=== PATIENT | female | born 1950 | race Two or more races ===

== ENCOUNTER → 2024-04-28 | Outpatient (CLI) | payer MEDICARE, MEDICAID, SELFPAY ==
--- NOTE | 2024-04-28 08:30 | XR_ITS ---
Examination: Breast ultrasound, unilateral, right complete Date and time of exam: April 28, 2024 0757 hours INDICATIONS: Mammogram April 08, 2024 4 mm focal asymmetry outer right breast Technique: Real-time nixon scale ultrasonographic imaging performed right breast including all 4 quadrants as well as nipple retroareolar and axillary region. Findings: 1:00 cyst 6 x 6 mm 1:00 cyst 5 x 4 mm No solid nodules IMPRESSION: BI-RADS Category 2: Benign findings
--- NOTE | 2024-04-28 09:15 | XR_ITS ---
Examination: Diagnostic digital mammography, unilateral, right Computer aided detection 3-D breast Tomosynthesis, unilateral Date and time of exam: April 28, 2024 0810 hours INDICATIONS: Mammogram April 08, 2024 4 mm focal asymmetry outer right breast CC view, 4.3 cm from the nipple Technique: Nonmagnified MLO, CC views of the right breast have been obtained, reconstructed from 3-D Tomosynthesis images. R2 computer aided detection program utilized for evaluation of suspicious masses and/or abnormal calcifications. 3-D Tomosynthesis images obtained. Findings: Scattered areas of fibroglandular density. Right breast sonogram today demonstrates benign cysts right breast Current spot compression films do not confirm suspicious mass Impression: BI-RADS category 2: Benign findings Return to yearly follow-up mammography
== END | disposition home or self-care (01) ==
PROVIDERS: PCP Physician Assistant; Referring Provider Physician Assistant; Visit Provider Physician Assistant
DX: R92.321 Mammographic fibroglandular density, right breast (principal); N60.01 Solitary cyst of right breast
CPT/HCPCS: 76641; 77061; 77065; G0279

== ENCOUNTER → 2024-08-24 | Outpatient (CLI) | payer MEDICARE, MEDICAID, SELFPAY ==
--- NOTE | 2024-08-24 12:40 | XR_ITS ---
Examination: Bone densitometry Date and time of exam:2024 1256 hours INDICATIONS: BI-RADS age 47, personal history osteopenia Technique: Lumbar spine and hip total bone mineralization values of an calculated. Peak reference and age match control results have been displayed. Findings: Lumbar spine total bone mineralization is1.048 gm/cm2. This is 0.0 standard deviations at peak reference. This is 2.3 standard deviations above age-matched controls. Hip total bone mineralization is 0.886 gm/cm2 This is 46 standard deviations below peak reference. This is 1.1 standard deviations above age-matched controls Impression: There is normal mineralization based on lumbar spine measurements. There is osteopenia based on hip measurements Lumbar mineralization is increase 12.9% compared with May 19, 2018 Hip mineralization is decreased 5.2% compared with May 19, 2019
== END | disposition home or self-care (01) ==
LOC: CDIM 12:34
PROVIDERS: PCP Physician Assistant; Referring Provider Physician Assistant; Visit Provider Physician Assistant
DX: M85.89 Other specified disorders of bone density and structure, multiple sites (principal)
CPT/HCPCS: 77080

== ENCOUNTER 2024-09-07 10:25 | Outpatient (AMB) | payer MEDICARE, MEDICAID, SELFPAY ==
[2024-09-07 10:45] VITALS: BP 146/80; PULSE 75; RESP 17; TEMP 36.1; O2SAT 93; BMI 43.9
--- NOTE | 2024-09-07 10:45 | ORTHONT_ITS ---
Vital signs 09/07/24 10:45 Height 1.52 m Height Method Stated Weight 102.058 kg Weight Measurement Method Standing Scale BMI 43.9 BP 146/80 H Blood Pressure Source Automatic Cuff Blood Pressure Location Left Upper Arm Position Sitting Respiration 17 Pulse 75 Pulse Source Monitor Temp 97.0 F Temp Source Temporal Artery Scan Pulse Oximetry (%) 93 L Oxygen Delivery Method Room Air Med/Allergies Allergies & Medications Allergies No Known Allergies Allergy (Verified 09/07/24 10:46) Medication Reconciliation tramadol 50 mg tablet (Ultram) 50 mg PO BID #0 tabs 04/25/14 [History Confirmed 09/07/24] acetaminophen 500 mg tablet (Tylenol Extra Strength) 500 mg PO Q6H PRN 01/09/24 [History Confirmed 09/07/24] benazepril 40 mg tablet 40 mg PO BID 01/09/24 [History Confirmed 09/07/24] clonazepam 1 mg tablet 1 mg PO QDAY 01/09/24 [History Confirmed 09/07/24] diclofenac sodium 75 mg tablet,delayed release 75 mg PO BID 01/09/24 [History Confirmed 09/07/24] sertraline 50 mg tablet 50 mg PO QDAY 01/09/24 [History Confirmed 09/07/24] vitamin B complex (B-Complex tablet) 1 tab PO QDAY 09/07/24 [History Confirmed 09/07/24] Exam Exam Patient is in no acute distress and is cooperative with the examination today. Breathing is nonlabored. Patient has a normal mood and affect. Bilateral extremities were evaluated and demonstrates sensation intact to light touch. Palpable pedal pulses are present. No significant edema is present. Bilateral hips were examined. The patient has no pain with log roll of the hips. Internal rotation to 30 degrees and external rotation to 30 degrees is painless. Negative FADIR. Right knee was examined today. Right knee incision is clean, dry, and intact Left knee was examined today. Left knee demonstrates range of motion 0 to 100 degrees. She is tender palpation medially Left knee x-rays Demonstrate significant joint space obliteration medially. There is complete obliteration and varus deformity with significant osteophytes Assessment and Plan Problem List (1) Arthritis of left knee: Status: Acute Plan: Patient is a 73-year-old female with significant left knee arthritis and varus deformity. She has tried diclofenac and multiple injections. The pain is affecting her quality of life. We discussed weight loss in great detail And she has made a significant attempt. Given her failure of conservative treatment, we discussed total knee replacement as a reasonable option. She also tried formal physical therapy and home exercises The nature and purpose of the total knee replacement, alternative method(s) of treatment, the material risks involved, and the possibility of complications were fully explained to the patient. The patient does NOT have any of the following contraindications to TKA: - Active infection of the knee joint, OR - Active systemic bacteremia, OR - Active skin infection or open wound at surgical site, OR - Neuropathic arthritis, OR - Severe, rapidly progressive neurological disease, OR - Severe medical condition that makes risks of surgery outweigh the potential benefit The patient was told the most common risks and complications associated with a total knee replacement include, but are not limited to: blood clots in the leg, fatal pulmonary embolism, dislocation of the prosthesis, intraoperative and postoperative fractures of the femur or tibia, infection, failure of the prosthesis or grafting materials, complications from anesthesia, reactions to blood transfusions, postoperative leg length inequality, instability of the knee replacement, nerve damage or injury, vascular injury, delayed wound healing, infection, other injury or even . In addition, there are risks associated with anesthesia given during this operation. Also, the patient was told that after undergoing a total knee replacement there may still be persistent pain or disability. The patient was informed that the success of this operation in part depends upon the mechanical devices which are going to be implanted and that these devices can fail or malfunction, and may need to be repaired or replaced and there are no guarantees as to the longevity of this device or its parts and that it or its parts could fail prematurely. The patient was also notified that during the course of surgery, there may be a need to use bone graft from donors, and that any bone graft used will be carefully screened for communicable diseases, including AIDS, hepatitis, Niraj-Creutzfeldt, or other diseases, but despite the screening procedures, there is a small chance that they could contract one of these diseases. Finally, the patient was asked to follow completely and fully with all advice and recommended treatments, and that recovery and ultimate outcome are affected by their compliance with recommended treatment. We discussed the risks, benefits and treatment alternatives, and the patient is interested in proceeding with surgery. We will try to set this up as expeditiously as possible. Advanced Care Planning Discussion Advance care planning discussed with:: patient Office Procedures GNS Level of Care Nursing/Assessment Patient Status: Established Patient Nursing Assessment/Reassesment: Medication Reconciliation and Update PMH in EMR Coordination of Care: Complex Care and Chronic Disease 1-5, Consent,records obtained, informed consent, Education Simp Pt/Fam, Results/Orders obtained and Staff clarify orders Special Needs: Language special needs (KYRGYZ ) Established Patient Charge Established Patient Point Assignment: 75 Established Patient Point Charge: EP Level 3 (80-115) MA Intake Visit Data Collection New Patient or Established: Established Patient (seen at [facility] within 3 years) Reason for Visit:: LEFT KNEE MENISCUS Seen by Clinical Staff ONLY (RN/MA): No 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: 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 PCP or OBGYN visit in last 3 months: Yes Hx Now: No Do You Feel Safe at Home: Yes Authorities Contacted: N/A Questionairres Past Medical History Past Medical History Have you ever been diagnosed with any of the following: Cardiology Problems Hypertension: Yes Respiratory Problems Chronic Obstructive Pulmonary Disease (COPD): No Asthma: No Emphysema: No Pneumonia: Yes Tuberculosis: No Smoking: No Smoking Cessation Counseling: No Smoking Exposure: No Tobacco Use: No Clubbing: No Genital/Urinary Problems Renal Disease: No Musculoskeletal Problems Arthritis: Yes Endocrine Problems Diabetes Mellitus Type 2: No Blood Problems Sickle Cell Disease: No Psychologic Problems Depression: Yes Anxiety: Yes Other Problems Cancer: No Subjective Visit Visit for: follow up visit and knee (LT KNEE ) Immunization / Flu Flu Vaccine in the Last 12 Months: Yes Flu Vaccine Exclusion Criteria: Already Received History of Present Illness Chief complaint: left knee pain Patient is a pleasant 74-year-old female with severe left knee pain. She had a right total knee replacement quite a while ago. The left knee injections are no longer working. She also takes diclofenac orally and has tried home exercises. She has been attempting his weight has tried weight loss medications in the past. She reports the pain is affecting her quality life and happiness at this point. Personal History Red flag PMH: none Pain Pain level (0-10): 10 Pain location: anterior and posterior Pain quality: sharp Pain timing: night and increases with activity Associated signs & symptoms: weakness and stiffness Ambulatory data Ambulatory device: none Walking distance (minutes): 5 Treatments Number of previous injections: 1 Improvement with previous injections: No Number of Physical Therapy sessions: 1 Improvement with PT: No Improvement with NSAIDS: n/a Review of Systems Review of Systems: All systems negative unless otherwise noted in HPI.
== END 2024-09-07 10:59 | disposition home or self-care (01) ==
LOC: HODSRG 10:25
PROVIDERS: PCP Physician Assistant; Referring Provider Physician Assistant; Supervising Provider Orthopaedic Surgery Adult Reconstructive Orthopaedic Surgery; Visit Provider Orthopaedic Surgery Adult Reconstructive Orthopaedic Surgery
DX: M17.12 Unilateral primary osteoarthritis, left knee (principal); M21.162 Varus deformity, not elsewhere classified, left knee; I10 Essential (primary) hypertension
CPT/HCPCS: 99213; G0463

== ENCOUNTER → 2024-09-13 | Outpatient (CLI) | payer MEDICARE, MEDICAID, SELFPAY ==
--- NOTE | 2024-09-13 15:53 | XR_ITS ---
Examination: PA lateral chest 2 views Technique: Upright PA lateral chest 2 views Exam date and time: September 13, 2024 1601 hrs. Indications: Preop knee surgery. Findings: Normal heart size Lungs are clear Moderate osteopenia Impression: No active disease
[2024-09-13 17:42] LABS: Basophils # (Auto) 0.1 Thou/mm3 (0.0-0.2); Basophils % (Auto) 1 % (0-2.5); Eosinophils # (Auto) 0.1 Thou/mm3 (0.0-0.5); Eosinophils % (Auto) 2 % (0-10); Hemoglobin 12.3 g/dL (12.0-16.0); Immature Granulocytes % (Auto) 0 % (0-0); Immature Granulocytes Auto 0.02 Thou/mm3 (0.00-0.00); Lymphocytes # (Auto) 2.4 Thou/mm3 (1.0-4.8); Lymphocytes % (Auto) 37 % (10-50); Mean Corpuscular HGB Conc 33.2 g/dl (31.0-37.0); Mean Corpuscular Hemoglobin 29.3 pg (25.0-35.0); Mean Corpuscular Volume 88 fL (80-100); Monocytes # (Auto) 0.5 Thou/mm3 (0.0-0.8); Monocytes % (Auto) 8 % (0-12); Neutrophils # (Auto) 3.4 Thou/mm3 (1.8-7.7); Neutrophils % (Auto) 52 % (37-80); Nucleated Red Blood Cell % 0 /100 WBC (0); Platelet Count 355 Thou/mm3 (140-440); RDW Standard Deviation 43.2 fL (36.4-46.3); White Blood Count 6.6 Thou/mm3 (3.6-11.0)
[2024-09-13 17:47] LABS: Prothrombin Time 10.9 Seconds (9.0-12.2)
[2024-09-13 17:49] LABS: Glucose Estimated Average 108 mg/dL (80-131); Hemoglobin A1C 5.4 % Hgb (4.8-6.0)
[2024-09-13 17:50] LABS: Alanine Aminotransferase 19 U/L (10-49); Albumin, Serum 4.2 gm/dL (3.4-4.8); Albumin/Globulin Ratio 1.7 (1.2-2.2); Alkaline Phosphatase 104 U/L (46-116); Anion Gap 7 (7-16); Aspartate Amino Transferase 22 U/L (0-34); BUN/Creatinine Ratio 30 Ratio (12-20); Bilirubin,Total 0.3 mg/dL (0.3-1.2); Blood Urea Nitrogen 15 mg/dL (9-23); Calcium 8.8 mg/dL (8.3-10.6); Calcium (Corrected) 8.8 mg/dL (8.5-10.1); Carbon Dioxide 26.8 mMol/L (20.0-31.0); Chloride 106 mMol/L (98-107); Creatinine (Component) 0.5 mg/dL (0.6-1.3); Globulin 2.5 gm/dL (2.3-3.5); Glucose 113 mg/dL (74-106); Osmolality,Calculated 281 (275-295); Sodium 140 mMol/L (136-145); Total Protein 6.7 gm/dL (5.7-8.2); eGFR > 60 See Note
== END | disposition home or self-care (01) ==
LOC: CDIM 15:25 → COPL 16:16
PROVIDERS: PCP Physician Assistant; Referring Provider Physician Assistant; Visit Provider Radiology Diagnostic Radiology
DX: I10 Essential (primary) hypertension (principal)
CPT/HCPCS: 36415; 71046; 80053; 83036; 85025; 85610

== ENCOUNTER 2025-03-21 10:53 | Emergency (ER) | payer MEDICARE, MEDICAID, SELFPAY ==
[2025-03-21 10:55] VITALS: BMI 43.9
[2025-03-21 11:26] VITALS: BP 153/84; PULSE 68; RESP 18; TEMP 36.6; O2SAT 95
--- NOTE | 2025-03-21 11:29 | XR_ITS ---
Examination: Knee, right, 3 views Technique: Knee AP, lateral, oblique 3 views Date and time of exam: March 21, 2025, 11:13 a.m. INDICATIONS: Patient fell today with injury to knee, knee pain. FINDINGS: Prominent osteopenia Total right knee arthroplasty with satisfactory alignment No fracture IMPRESSION: No acute fracture
--- NOTE | 2025-03-21 11:29 | XR_ITS ---
EXAMINATION: PA lateral chest 2 views TECHNIQUE: Upright PA lateral chest 2 views Date and time: March 21, 2025, 11:41 a.m., comparison September 13, 2024 INDICATIONS: Patient fell today with injury of the chest, chest pain FINDINGS: Normal heart size No pneumothorax. Clavicles ribs thoracic vertebral bodies appear intact IMPRESSION: No pneumothorax pulmonary contusion or hemothorax
--- NOTE | 2025-03-21 11:29 | XR_ITS ---
EXAMINATION: Thoracic spine 3 views TECHNIQUE: AP lateral: Lateral upper dorsal spine 3 views Date and time: March 21, 2025, 11:51 a.m. INDICATIONS: Patient fell today with injury to the back, mid back pain. FINDINGS: Severe osteopenia. Prominent thoracic spondylosis. Mild to moderate diffuse thoracic degenerative disc disease. No acute fracture IMPRESSION: No acute fracture
--- NOTE | 2025-03-21 11:32 | PD.EDADULT ---
ED General RME/HPI General Chief complaint: Fall Stated complaint: FALL YESTERDAY, RIB/KNEE PAIN, DIFF BREATHING Time Seen by Provider: 03/21/25 11:11 Arrival date/time: 03/21/25 10:53 CC: Right sided chest pain HPI onset after fall, patient stated her right knee gave out , patient denies tripping falling did not hit her head does not take any blood thinners, stating that she is not no relief of pain in spite of taking tramadol this morning. No other acute plaints local chest pain is 2-3 out of 10 scale. Related Data Home Medications ?Medication ?Instructions ?Recorded ?Confirmed tramadol 50 mg tablet (Ultram) 50 mg PO BID #0 tabs 04/25/14 09/07/24 acetaminophen 500 mg tablet 500 mg PO Q6H PRN 01/09/24 09/07/24 (Tylenol Extra Strength) benazepril 40 mg tablet 40 mg PO BID 01/09/24 09/07/24 clonazepam 1 mg tablet 1 mg PO QDAY 01/09/24 09/07/24 diclofenac sodium 75 mg 75 mg PO BID 01/09/24 09/07/24 tablet,delayed release sertraline 50 mg tablet 50 mg PO QDAY 01/09/24 09/07/24 vitamin B complex (B-Complex 1 tab PO QDAY 09/07/24 09/07/24 tablet) Previous Rx's ?Medication ?Instructions ?Recorded meloxicam 7.5 mg tablet 7.5 mg PO QDAY #10 tabs 03/21/25 Allergies Allergy/AdvReac Type Severity Reaction Status Date / Time No Known Allergies Allergy Verified 03/21/25 11:01 Review of Systems Review of Systems Narrative Review of Systems: GEN: No fever, no chills, no weight loss EYES: No discharge, no visual changes, no pain HEENT: No ear pain, no congestion, no sore throat PULM: No shortness of breath, no cough, no congestion CV: No chest pain, no dyspnea on exertion, no palpitations GI: No nausea, no vomiting, no diarrhea, no pain, no constipation : No frequency, no urgency, no dysuria MUSC/SKEL: + joint pain, no back pain SKIN: No rash PSYCH: No hallucinations, no depression HEME/LYMPH: No easy bleeding or bruising tendencies NEURO: No weakness, no headache Past Medical History Past Medical History CARDIAC: Positive Hypertension; Negative Cardiac Disorders RESPIRATORY: Positive Pneumonia; Negative Chronic Obstructive Pulmonary Disease (COPD), Asthma, Emphysema, Tuberculosis, Smoking, Smoking Cessation Counseling, Smoking Exposure, Tobacco Use or Clubbing GENITOURINARY: Negative Renal Disease MUSCULOSKELETAL: Positive Arthritis ENDOCRINE: Negative Diabetes Mellitus Type 2 HEMATOLOGIC: Negative Sickle Cell Disease PSYCHO/SOCIAL: Positive Depression and Anxiety OTHER HISTORY: Negative Cancer Surgical History SURGICAL: Positive Abdominal Surgery Social History SMOKING STATUS: Never smoker SUBSTANCE USE: does not use ED Exam Narrative Physical exam: [General: Morbidly obese not in any acute distress Head normocephalic, no step-off hematoma induration ulceration or depression. HEENT: Eyes pupils are PERRLA EOM intact mouth pink dry membranes all of the subsystems of HEENT are within acceptable limits Neck is supple nontender Chest equal chest rise, right anterior mild tenderness with palpation. Respiratory: Clear to auscultation no wheezes crackles or rubs CV: Rate rhythm is regular no murmurs rubs or clicks Abdomen is grossly distended secondary to body habitus soft nontender no masses positive bowel sounds all 4 quadrants Back: Mild paraspinal thoracic lumbar tenderness with palpation no spinous process tenderness with palpation. Skin: Intact no petechiae rash induration ulceration or crepitus Extremities: Decreased range of motion with mild edema to the right knee. Patient observed ambulating without complication. Moving all other extremities against resistance cap refill less than 2 seconds neurosensory intact Neuro: Awake alert oriented x3 Glascow coma 15 no focal deficits] Course Quality Measures none Orders Category Date Time Status XR chest 2V Stat Exams 03/21/25 11:29 Completed XR knee RT 3V Stat Exams 03/21/25 11:29 Completed XR thoracic spine 2V Stat Exams 03/21/25 11:29 Completed CBC Stat Lab 03/21/25 12:42 Completed CMP [Comprehensive Metabolic Panel] Stat Lab 03/21/25 12:42 Completed Urinalysis, C/S if Indicated Stat Lab 03/21/25 11:44 Completed Vital Signs Vital signs: Vital Signs Temperature 97.9 F 03/21/25 11:26 Pulse Rate 68 03/21/25 11:26 Respiratory Rate 18 03/21/25 11:26 Blood Pressure 153/84 H 03/21/25 11:26 Pulse Oximetry (%) 95 03/21/25 11:26 Oxygen Delivery Method Room Air 03/21/25 11:26 Discharge Plan Plan Patient Disposition: HOME (Self Care) Patient condition on transfer: Stable Prescriptions/Referrals Prescriptions/Med Rec: New meloxicam 7.5 mg tablet 7.5 mg PO QDAY Qty: 10 0RF No Action vitamin B complex [B-Complex] Tablet 1 tab PO QDAY diclofenac sodium 75 mg tablet,delayed release (DR/EC) 75 mg PO BID benazepril 40 mg tablet 40 mg PO BID acetaminophen [Tylenol Extra Strength] 500 mg tablet 500 mg PO Q6H PRN sertraline 50 mg tablet 50 mg PO QDAY clonazepam 1 mg tablet 1 mg PO QDAY tramadol [Ultram] 50 MG tablet 50 mg PO BID Qty: 0 Patient Comments: FOR PAIN, NOT TO EXCEED 8 TABS IN 24 HRS Referrals: Nawaf Cueva MD [Physician, Family Practice] - In 1 week Problem List Clinical Impression: Morbid obesity, Fall, Chest wall contusion, Contusion of knee Patient/Caregiver Discharge Instructions Education Materials: Losing Weight for Heart Health, Bruises (Contusions), Obesity Doctor, ED Contusion, Rib Additional Instructions: Take the medication as prescribed there is nothing broken in your chest knee. There is no acute finding in your blood work. You will be stiff and sore from the fall for the next 2 to 3 days. I strongly advise that you begin to lose weight. Print Language: Swazi Stand Alone Forms: [employer] Award Info., Patient Portal Info Letter PA/SUSTAINABLE DEVELOPMENT POLICY ANALYST Supervising Physician PA/SUSTAINABLE DEVELOPMENT POLICY ANALYST Supervising Physician: Landon Lopes ENP [facility] Clinical Information Provided by: patient Medical Records reviewed [facility] Meds/Rx considered, not ordered None Labs/Rad/Tests considered, not ordered None Chronic Illness/Social Conditions Explain: Morbid obesity EKG EKG not done Labs Labs: interpreted by me Lab(s) Interpretation(s): CMP shows no significant electrolyte imbalances renal impairment transaminitis or T. bili elevation. CBC shows no acute electrolyte imbalances or renal impairment. Imaging Imaging interpretation: interpreted by me Imaging Interpretation(s): X-ray thoracic spine right knee chest x-ray are all negative as interpreted by me read by radiology for any acute fracture malalignment or dislocation. Medication Administration(s) none Diagnosis Differential Diagnosis ED Complaint MDM: Fall rib fracture chest wall contusion
[2025-03-21 11:50] LABS: Collection Type, Urine Clean Catch
[2025-03-21 12:26] LABS: Bilirubin,Urine Negative (Negative); Blood,Urine Negative (Negative); Clarity,Urine Clear (Clear/Hazy); Color,Urine Lt-Yellow (Lt Yel-Yel); Culture Indicated,Urine Not Indicated; Glucose, Urine Negative (Negative); Ketones,Urine Negative (Negative); Leukocyte Esterase,Urine Negative (Negative); Nitrite,Urine Negative (Negative); PH,Urine 6.5 (5.0-7.0); Protein,Urine Negative (Neg - Trace); RBC,Urine 1 /hpf (0-3); Specific Gravity,Urine 1.022 (1.001-1.035); Squamous Epithelial Cell,Urine 4 /hpf (0-5); Urobilinogen,Urine Negative mg/dL (0.0-1.0); WBC,Urine 1 /hpf (0-5)
[2025-03-21 12:57] LABS: Basophils # (Auto) 0.1 Thou/mm3 (0.0-0.2); Basophils % (Auto) 1 % (0-2.5); Eosinophils # (Auto) 0.1 Thou/mm3 (0.0-0.5); Eosinophils % (Auto) 1 % (0-10); Hematocrit 38.1 % (36.0-46.0); Hemoglobin 12.4 g/dL (12.0-16.0); Immature Granulocytes Auto 0.03 Thou/mm3 (0.00-0.00); Lymphocytes # (Auto) 2.5 Thou/mm3 (1.0-4.8); Lymphocytes % (Auto) 34 % (10-50); Mean Corpuscular HGB Conc 32.5 g/dl (31.0-37.0); Mean Corpuscular Hemoglobin 28.6 pg (25.0-35.0); Mean Corpuscular Volume 88 fL (80-100); Monocytes # (Auto) 0.6 Thou/mm3 (0.0-0.8); Monocytes % (Auto) 8 % (0-12); Neutrophils # (Auto) 3.9 Thou/mm3 (1.8-7.7); Neutrophils % (Auto) 55 % (37-80); Nucleated Red Blood Cell # 0.00 Thou/mm3 (0.00-0.00); Nucleated Red Blood Cell % 0 /100 WBC (0); Platelet Count 339 Thou/mm3 (140-440); RDW Standard Deviation 41.1 fL (36.4-46.3); Red Blood Count 4.34 Miln/mm3 (4.00-5.20); White Blood Count 7.2 Thou/mm3 (3.6-11.0)
[2025-03-21 13:15] LABS: Alanine Aminotransferase 12 U/L (10-49); Albumin, Serum 4.6 gm/dL (3.4-4.8); Albumin/Globulin Ratio 1.6 (1.2-2.2); Alkaline Phosphatase 94 U/L (46-116); Anion Gap 9 (7-16); Aspartate Amino Transferase 19 U/L (0-34); BUN/Creatinine Ratio 22 Ratio (12-20); Bilirubin,Total 0.4 mg/dL (0.3-1.2); Blood Urea Nitrogen 13 mg/dL (9-23); Calcium 9.8 mg/dL (8.3-10.6); Calcium (Corrected) 9.8 mg/dL (8.5-10.1); Carbon Dioxide 26.6 mMol/L (20.0-31.0); Chloride 105 mMol/L (98-107); Creatinine (Component) 0.6 mg/dL (0.6-1.3); Estimated Creatinine Clearance 89.8 mL/min (>60); Globulin 2.9 gm/dL (2.3-3.5); Glucose 95 mg/dL (74-106); Osmolality,Calculated 281 (275-295); Potassium 4.3 mMol/L (3.4-5.1); Sodium 141 mMol/L (136-145); Total Protein 7.5 gm/dL (5.7-8.2); eGFR > 60 See Note
== END 2025-03-21 14:27 | disposition home or self-care (01) ==
LOC: SERX 14:21
PROVIDERS: Registered Nurse General Practice; Emergency Provider Family Medicine; PCP Physician Assistant
DX: S20.219A Contusion of unspecified front wall of thorax, initial encounter (principal); W19.XXXA Unspecified fall, initial encounter; Z79.891 Long term (current) use of opiate analgesic; E66.01 Morbid (severe) obesity due to excess calories; S80.01XA Contusion of right knee, initial encounter
CPT/HCPCS: 36415; 71046; 72070; 73562; 80053; 81001; 85025; 99283